=== PATIENT | male | born 1970 | race Caucasian/White ===

== ENCOUNTER 2018-12-15 19:29 | Emergency (ER) | payer OTHER ==
[~2018-12-15] VITALS: Ht 190.5 cm; Wt 122.5 kg
== END 2018-12-15 20:13 | disposition home or self-care (01) ==
LOC: ED 19:29
PROC: 2W3CX1Z Immobilization of Right Lower Arm using Splint (ICD-10-PCS; principal; 2018-12-15)
DX: S63.501A Unspecified sprain of right wrist, initial encounter (principal); W01.0XXA Fall on same level from slipping, tripping and stumbling without subsequent striking against object, initial encounter; W10.9XXA Fall (on) (from) unspecified stairs and steps, initial encounter
CPT/HCPCS: 29125; 73110; 99283-25

== ENCOUNTER 2022-10-15 05:55 | Day surgery (SDC) | payer OTHER ==
[~2022-10-15] VITALS: Ht 190.5 cm; Wt 131.8 kg
[~2022-10-15 05:55] MED LIST: ACYCLOVIR400 MG PO; FISH OIL 1,0001 EAC2 NG; KEFLEX500 MG PO; LIPITOR20 MG; NORCO 5-325 TA1 EACH PO; NORVASC5 MG PO; TESTOSTERONE200 MG IM; ZESTRIL20 MG PO; [UNRECOGNIZED DRUG - OTHER]
[2022-10-15] MEDS ORDERED: CO Q-10100 MG PO (06:23)
[2022-10-15] MEDS ORDERED: CREATINE 50005000 MG PO (07:14)
--- NOTE | 2022-10-15 08:18 | NUR ---
10/15/22 0818 Bonny Fall 0812- PT ARRIVES TO PACU NONAROUSABLE TO STIMULI WITH AN OPA IN PLACE. RESP EVEN AND UNLABORED. OXYGEN SAT LOW TO MID 90'S ON 4L VIA NC. CO2 IN THE 30'S.
--- NOTE | 2022-10-15 10:15 | NUR ---
PT ALERT, ORIENTED AND HERE FOR FIRST SCOPE. HIS IS HERE AND WILL REMAIN FOR DC. GLUER AND SLICER HAND IN FOR VISIT. GAVE BLESSING AND WILL FOLLOW
--- NOTE | 2022-10-15 10:44 | OR ---
[facility] [address] [place], [place] [address] Signed DATE OF OPERATION: 10/15/2022 SURGEON: Juanjose Walls MD PREOPERATIVE DIAGNOSIS: Screening. POSTOPERATIVE DIAGNOSES: 1. Uozudho-mt-whafxdwm sigmoid diverticulosis. 2. A 7 mm sessile polyp, distal right colon (snare). 3. A 4 mm polyp distal right colon. 4. A 5 mm polyp at 65 cm (left colon). PROCEDURE: Colonoscopy with snare polypectomy and hot biopsy. ESTIMATED BLOOD LOSS: None. INDICATIONS: Shaun is a 52-year-old gentleman, asked to see me for his initial screening colonoscopy. There is no family history of colon cancer or polyps. He has no lower GI complaints. In the office, I had given him a pamphlet on colonoscopy. We reviewed the nature of the test. He understands there is risk including, but not limited to gas bloating, crampy abdominal pain, bleeding, perforation requiring surgery, and missed diagnosis. We also reviewed the need for monitored anesthesia care given the fact that he is a very large man with obstructive sleep apnea requiring CPAP. He actually said that would be a good idea. He had expressed understanding and wished to proceed. DESCRIPTION OF PROCEDURE: Shaun was taken into our endoscopy suite and placed in the left lateral decubitus position. He was given monitored anesthesia care with propofol per our nurse parker. A digital rectal exam was performed and this was unremarkable. He had good sphincter tone. No external hemorrhoids. No masses. The adult colonoscope was introduced, advanced all around into the cecum under direct visualization of the camera without difficulty. His prep was good. We could easily see the appendiceal orifice and the ileocecal valve. The scope was then slowly withdrawn. We took pictures throughout for photodocumentation. We used our snare to divide the 7 mm polyp in the distal right colon that was captured and suction through the scope. Next to that was much smaller 4 mm polyp, which we removed with the help of hot biopsy forceps in the left Electronically Signed By: JUANJOSE WALLS MD 10/15/22 1044 PATIENT NAME: SHAUN JIMENEZ OPERATIVE REPORT DATE OF : 74 REPORT #: [id number] PHYSICIAN: JUANJOSE WALLS MD PCP: ASHLEY OJEDA PAC REPORT IS CONFIDENTIAL AND NOT TO BE RELEASED WITHOUT AUTHORIZATION [facility] [address] [place], [place] [address] Signed colon at 65 cm. We removed the 5 mm polyp with two bites of the hot biopsy forceps. He does have diverticula in the left and sigmoid colon, they were moderate in size, few to moderate in number and scattered about. The rectum itself was unremarkable. Upon retroflexion of scope, there was really no additional pathology noted above the anal canal. After this, the gas was suctioned out and colonoscope removed. Shaun tolerated the procedure quite well. RECOMMENDATIONS: I will see Shaun back in my office in 7 to 14 days to review his results. Juanjose Walls MD ALB/MODL /[id number] cc: ADITHYA Santizo MD Patient Chart Copies: JUANJOSE WALLS MD ~ Electronically Signed By: JUANJOSE WALLS MD 10/15/22 1044 PATIENT NAME: SHAUN JIMENEZ OPERATIVE REPORT DATE OF : 74 REPORT #: [id number] PHYSICIAN: JUANJOSE WALLS MD PCP: ASHLEY OJEDA PAC REPORT IS CONFIDENTIAL AND NOT TO BE RELEASED WITHOUT AUTHORIZATION
--- NOTE | 2022-10-20 12:02 | PATH ---
[facility] [address] [place], [place] [address] Signed SPECIMEN(S): A DISTAL ASCENDING/RIGHT COLON POLYP 1 SPECIMEN(S): B DISTAL ASCENDING/RIGHT COLON POLYP 2 SPECIMEN(S): C ASCENDING/RIGHT COLON POLYP AT 65 CM SPECIMEN SOURCE: A. DISTAL ASCENDING/RIGHT COLON POLYP 1 B. DISTAL ASCENDING/RIGHT COLON POLYP 2 C. ASCENDING/RIGHT COLON POLYP AT 65 CM CLINICAL HISTORY: Pre: Initial screening colonoscopy. Postop Dx: Diverticulosis, colon polyps. FINAL PATHOLOGIC DIAGNOSIS: A. Distal ascending/right colon polyp #1, biopsy: - Fragments of tubular adenoma. B. Distal ascending/right colon polyp #2, biopsy: - Tubular adenoma. C. Ascending/right colon polyp at 65 cm, biopsy: - Fragments of tubular adenoma. AMB:cml:C2NR MICROSCOPIC EXAMINATION: Histologic sections of all submitted blocks are examined by light microscopy. These findings, together with the gross examination, support the pathologic diagnosis. GROSS DESCRIPTION: Three specimens are received in three containers, labeled "MG." A. The specimen, labeled "MG, distal ascending/right colon polyp #1," is received in formalin and consists of multiple simpson soft tissue fragments that measure 0.2-0.5 cm in greatest dimension. The specimen is entirely submitted in cassette (A1). B. The specimen, labeled "MG, distal ascending/right colon polyp #2," is received in formalin and consists of one simpson soft tissue fragment that measures 0.2 cm in greatest dimension. The specimen is entirely submitted in cassette (B1). C. The specimen, labeled "MG, ascending/right colon polyp at 65 cm," is received in formalin and consists of two simpson soft tissue fragments that measure 0.2 cm in greatest dimension. The specimen is entirely submitted in cassette (C1). VB (under the direct supervision of a pathologist) PATIENT NAME: ALTON JIMENEZ PATHOLOGY DATE OF : 74 REPORT #: [id number] PHYSICIAN: LISANDRA GASTON PCP: ASHLEY OJEDA PAC REPORT IS CONFIDENTIAL AND NOT TO BE RELEASED WITHOUT AUTHORIZATION [facility] [address] [place], [place] [address] Signed The Gross Description was prepared using a voice recognition system. The report was reviewed for accuracy; however, sound-alike word errors, addition and/or deletions may occur. If there is any question about this report, please contact Client Services. PERFORMING LABORATORY: The technical component was performed by [facility], [address] [place] [address] (CLIA# [id number]). Professional interpretation was performed by [facility], [address] [address] (CLIA#: [id number]). Diagnostician: Nataliia Adkins MD Pathologist Electronically Signed 10/20/2022 Copies: ~ PATIENT NAME: ALTON JIMENEZ PATHOLOGY DATE OF : 74 REPORT #: [id number] PHYSICIAN: LISANDRA GASTON PCP: ASHLEY OJEDA PAC REPORT IS CONFIDENTIAL AND NOT TO BE RELEASED WITHOUT AUTHORIZATION
== END 2022-10-15 09:10 | disposition home or self-care (01) ==
LOC: DS 05:55
PROVIDERS: ATTEND Colon & Rectal Surgery
PROC: 0DBK8ZZ Excision of Ascending Colon, Via Natural or Artificial Opening Endoscopic (ICD-10-PCS; principal; 2022-10-15 07:30)
DX: Z12.11 Encounter for screening for malignant neoplasm of colon (principal); K57.30 Diverticulosis of large intestine without perforation or abscess without bleeding; I10 Essential (primary) hypertension; G47.33 Obstructive sleep apnea (adult) (pediatric); D12.2 Benign neoplasm of ascending colon
CPT/HCPCS: J2001; J2704; J7121